=== PATIENT | female | born 1975 | race Caucasian/White ===

== ENCOUNTER 2016-12-22 22:25 | Emergency (ER) | payer BC ==
[2016-12-22] MEDS ORDERED: ONDANSETRON HCL/PF 2 MG/ML VIAL IV ONE (22:53)
[2016-12-22] MEDS ORDERED: NORMAL SALINE 1,000 ML IV ONE (22:54)
[2016-12-22] MEDS ORDERED: KETOROLAC TROMETHAMINE 30 MG/ML VIAL IV ONE (22:54)
[2016-12-22] MEDS ORDERED: diphenhydrAMINE HCL 50 MG/ML VIAL IV ONE (22:55)
[2016-12-22] MEDS ORDERED: diphenhydrAMINE HCL 50 MG/ML VIAL ONE (23:01)
[2016-12-22] MEDS ORDERED: KETOROLAC TROMETHAMINE 30 MG/ML VIAL ONE (23:01)
[2016-12-22] MEDS ORDERED: ONDANSETRON HCL/PF 2 MG/ML VIAL ONE (23:01)
--- NOTE | 2016-12-22 23:03 | ERNOTE ---
Abdominal HPI - General Chief Complaint: Abdominal Pain Time Seen by Provider: 12/22/16 22:45 Source: patient, family Exam Limitations: no limitations - Immun/Allergies/Home Medications Immunizatons: IMMUNIZATION HX Immunizations Up to Date Yes History of Influenza Vaccine No Hx Pneumococcal Vaccination No Allergies/Adverse Reactions: Allergies No Known Drug Allergies Allergy (Verified 12/22/16 22:41) Home Medications: HOME MEDICATIONS Doxycycline Hyclate [Vibratab] 100 mg PO BID 12/22/16 [Last Taken Unknown] Ondansetron [Zofran Odt] 4 mg PO PRN 12/22/16 [Last Taken Unknown] Amoxicillin 875 mg PO BID #10 tablet 12/23/16 [Last Taken Unknown] - History of Present Illness Narrative: Pt states over the weekend she had an episode of unresponsiveness despite standing and having her eyes open. She had some dizziness prior to this. She was seen in the [facility] ED and dx with a possible seizure, and otitis media. She was given amoxil 500mg BID. She followed up with her PCP [facility] today due to abd. discomfort and the ED visit and was given doxycycline and told to take mag citrate due to constipation. She has had some solid stool and watery diarrhea after the mag citrate. Now has a headache and continues to have abd pain. She had increase in pain and "dry-heaves" after taking the doxycycline. Timing: getting worse Quality: moderate Activities at Onset: activity Modifying Factors - (Worsens): Present: other - antibiotics Associated Symptoms: Present: headache. Absent: shortness of breath Prior Treatment: Present: recently seen, treated by physician, currently on antibiotics Review of Systems - Review of Systems Constitutional: Present: recent illness EYE: Absent: vision changes ENT: Absent: nose congestion Respiratory: Present: shortness of breath Cardiology: Present: no symptoms reported Gastrointestinal/Abdominal: Present: See HPI, nausea, vomiting, diarrhea Genitourinary: Absent: frequency, pain Musculoskeletal: Absent: muscle pain, muscle stiffness Skin: Present: no symptoms reported Neurological: Present: dizziness/light-headedness Endocrine: Present: no symptoms reported Hematologic/Lymphatic: Present: no symptoms reported Psych: Present: no symptoms reported - Patient's Past Medical History Patient History - Medical: No pertinent hx Patient History - Cardiac/Respiratory: Other Patient History - Cancer: No Hx of Cancer Patient History - Surgical Procedures: D & C, Other Patient History - Other: None - Social History Living Situations: home Abuse History: No History of abuse Psych History: Hx of Anxiety Smoking Status: Never smoker Alcohol Use: none Drug Use: none - Immunizations Immunizations Up to Date: Yes Hx Pneumococcal Vaccination: No History of Influenza Vaccine: No Physical Exam - Physical Exam General Appearance: Present: wd/wn, alert, no apparent distress Head Exam: Present: normal inspection, no evidence of injury Eye Exam: Normal inspection: bilateral Ears, Nose, Throat: Present: normal ENT inspection Neck: Present: normal inspection, nontender Respiratory: Present: no respiratory distress, normal breath sounds, no accessory muscle use, lungs clear Cardiovascular/Chest: Present: regular rate, rhythm, no murmur, normal peripheral pulses Gastrointestinal/Abdominal: Present: tenderness - epigastric and diffuse, abnormal bowel sounds - hypoactive. Absent: distended Back Exam: Present: normal inspection, no CVA tenderness, no vertebral tenderness Extremity Exam: Present: normal inspection, normal range of motion, no edema Neurological Exam: Present: alert, oriented, normal mood/affect, no motor/ sensory deficits Skin Exam: Present: normal color, warm/dry Lymphatic Exam: Present: no adenopathy ED Progress - Results and Orders Patient's Lab Results:: I have reviewed the patient's lab results. Results and Orders: Laboratory Tests 12/22/16 12/22/16 12/22/16 22:53 23:07 23:07 WBC 10.7 H Hgb 14.5 Hct 43.8 Plt Count 486 H Sodium 135 Potassium 3.5 Chloride 95 L Carbon Dioxide 32.1 BUN 9 Creatinine 0.91 Random Glucose 127 H Calcium 9.3 Total Bilirubin 0.4 AST 12 ALT 19 Alkaline Phosphatase 67 Total Protein 7.8 Albumin 3.9 Amylase 52 Lipase 189 Serum HCG, Qual Negative - Vital Signs Patient's Vital Signs:: I have reviewed the patient's vital signs. Vital Signs: Vital Signs 12/22/16 22:32 Temperature 36.4 C L Pulse Rate 100 Respiratory 18 Rate Blood Pressure 146/109 O2 Sat by Pulse 100 Oximetry - X-Ray X-Ray #1 X-Ray: abdomen Interpretation: Interp. by az X-ray Comments: Flat and upright: mild stool retention, no evidence for obstruction. multiple small lung lesions probably granulomas. - Progress/Reassessment Chief Complaint: Abdominal Pain Progress Note-Subjective: 12/23/16 00:37 discussed at length the patients symptoms and results from previous visit to [facility]. Discussed the EEG that was done there and results were in the records we requested. It was negative. Pt expressed understanding Departure Clinical Impression: Gastritis Qualifiers: Gastritis type: unspecified gastritis Chronicity: acute Gastritis bleeding: presence of bleeding unspecified Qualified Code(s): K29.00 - Acute gastritis without bleeding Otitis media Qualifiers: Otitis media type: suppurative Chronicity: acute Laterality: unspecified laterality Recurrence: not specified as recurrent Spontaneous tympanic membrane rupture: without spontaneous rupture Qualified Code(s): H66.009 - Acute suppurative otitis media without spontaneous rupture of ear drum, unspecified ear - Departure Disposition: Home Follow Up Needed Condition: Good Instructions: Gastritis, Adult, [id number] Additional Instructions: You may take mylanta or similar product to help with your stomach until the nexium you have begins to work. If you decide to use an acid lana on and as needed basis, stop the nexium and use zantac or pepcid. Have you primary care provider retest your prolactin on a fasting, non-stress condition. Take the remaining amoxicillin three times a day then finish out with the prescription that I send in for you twice a day. Referrals: Gilbert Steel ARNP [Primary Care Provider] - Prescriptions: Amoxicillin 875 mg PO BID #10 tablet
[2016-12-22 23:16] LABS: Hematocrit 43.8 % (37.0-47.0); Hemoglobin 14.5 gm/dL (12.5-16.0); Mean Cell Volume 86.1 fl (78-100); Mean Corpuscular Hemoglobin 28.5 pg (27-31); Mean Corpuscular Hgb Conc 33.1 g/dl (32-36); Mean Platelet Volume 9.2 fl (6.0-9.5); Neutrophil % 56.4 % (42-75.0); Platelet Count 486 K/mm3 (150-450); Red Blood Count 5.09 M/mm3 (4.2-5.4); Red Cell Distribution Width 12.2 % (11.5-14.0); White Blood Count 10.7 K/mm3 (4.0-10.5)
[2016-12-22 23:34] LABS: Albumin * 3.9 gm/dl (3.4-5.0); Anion Gap 11.4 mmol/L (6.8-13.8); BUN/Creatinine Ratio 9.9 (9.0-21.6); Bilirubin, Total 0.4 mg/dL (0.0-1.1); Ca. Corrected For Albumin 9.1 mg/dL (8.4-10.2); Calcium * 9.3 mg/dL (7.9-10.9); Carbon Dioxide 32.1 mmol/L (24-32.6); Potassium 3.5 mmol/L (3.4-4.6); Total Protein 7.8 gm/dL (6.2-8.2)
[2016-12-23] MEDS ORDERED: LIDOCAINE HCL 20 ML UDC PO ONE (00:29)
[2016-12-23] MEDS ORDERED: MAG HYDROX/ALUMINUM HYD/SIMETH 30 ML UDC PO ONE (00:29)
[2016-12-23] MEDS ORDERED: SUCRALFATE 1 G/10 ML UDC PO ONE (00:29)
[2016-12-23 01:08] VITALS: BP 143/93
== END 2016-12-23 00:40 | disposition home or self-care (01) ==
LOC: ER 22:25
DX: K29.00 Acute gastritis without bleeding (principal); H66.009 Acute suppurative otitis media without spontaneous rupture of ear drum, unspecified ear
CPT/HCPCS: 36415; 74020; 80053; 82150; 83690; 84703; 85025; 96374; 96375; 99284; J2405